=== PATIENT | female | born 1995 | race Caucasian/White ===

== ENCOUNTER 2018-10-31 20:07 | Outpatient (REF) | payer MEDICAID, SELFPAY | END 2018-10-31 20:27 | LOC: NCHCN 20:07 | PROVIDERS: PCP Pediatrics; Visit Provider Physician Assistant Medical | DX: N39.0 Urinary tract infection, site not specified (principal) | CPT/HCPCS: 87077; 87086; 87186 ==

== ENCOUNTER 2019-04-29 19:17 | Outpatient (REF) | payer MEDICAID, SELFPAY ==
[2019-04-29 19:06] LABS: Abs Immature Grans 0.01 k/cumm (0.0-0.09); Absolute Basophil Count 0.02 k/cumm (0.0-0.2); Absolute Eosinophil Count 0.12 k/cumm (0.0-0.7); Absolute Lymphocyte Count 1.46 k/cumm (1.2-3.4); Absolute Monocyte Count 0.41 k/cumm (0.11-0.7); Absolute Neutrophil Count 4.93 k/cumm (1.2-6.7); Basophils % 0.3; Eosinophils % 1.7; HCT 39.5 % (36.0-46.0); HGB 12.8 g/dL (12.0-15.5); Immature Grans % 0.1; Mean Corp. HGB Concentration 32.4 g/dL (32.0-36.0); Mean Corpuscular Hemoglobin 28.6 pg (27.0-33.0); Mean Corpuscular Volume 88.4 fL (80-95); Mean Platelet Volume 11.9 fL (8.0-11.0); Monocytes % 5.9; Platelet Count 213 x1000/uL (130-400); RBC 4.47 m/cumm (4.00-5.20); RBC Distribution Width 14.3 % (11.7-14.6); White Blood Cell Count 6.95 k/cumm (4.4-10.8)
[2019-04-29 19:27] LABS: Iron 55 ug/dL (50-175)
[2019-04-29 19:41] LABS: Ferritin 66 ng/mL (8-388); TSH (W/Ref FT4) 1.71 uIU/mL (0.36-3.74)
== END 2019-04-29 19:37 ==
LOC: NCHCN 19:17
PROVIDERS: PCP Pediatrics; Visit Provider Nurse Practitioner Family
DX: R53.83 Other fatigue (principal)
CPT/HCPCS: 82728; 83540; 84443; 85025

== ENCOUNTER 2020-06-11 13:53 | Outpatient (REF) | payer MEDICAID, SELFPAY ==
[2020-06-11 20:20] LABS: ESR 23 mm/hr (0-20)
[2020-06-19 13:00] LABS: CRP, High Sensitivity 14.6 mg/L (<2.0)
[2020-06-19 13:01] LABS: Rheumatoid Factor <15 IU/mL (<15)
[2020-06-19 13:04] LABS: ANA Interpretation 0.5 U (Negative)
== END 2020-06-11 14:13 ==
LOC: NCHCN 13:53
PROVIDERS: PCP Pediatrics; Visit Provider Nurse Practitioner Family
DX: L40.8 Other psoriasis (principal); M25.59 Pain in other specified joint
CPT/HCPCS: 85652; 86141; 83735; 86038; 86431

== ENCOUNTER 2020-12-23 10:11 | Outpatient (REF) | payer MEDICAID, SELFPAY ==
--- NOTE | 2020-12-23 10:19 | PAPFT_PTH ---
PATIENT: Deisy Duggan LOC: [facility]#:[id number] AGE/SX: 25/F ROOM: RE12/23/[address]: Caroline Garcia : 1995 BED: DIS: 12/23/2020 SPEC #: [id number] RECD: 12/23/20 18:03 STATUS: LUISANA RERolanad #: [id number] JANNET: 12/23/20 10:[address]: Caroline Garcia DEPT: [facility] Cytology RECD BY: Keyla Painter ENTERED: 12/23/20 18:03 SP TYPE: PAPFT OTHR DR: Maddie Olguin MD Tissues: 1 - CX/ENDOCX FOR PAP SMEARS Procedures: PAP THIN PREP/[facility] Screening Comments: [id number]
[2020-12-23 16:06] LABS: Hemoglobin A1C 5.3 % (<5.7)
[2020-12-23 16:29] LABS: ALT 72 U/L (14-59); AST 39 U/L (15-37); Albumin 3.9 g/dL (3.4-5.0); Alkaline Phosphatase 90 U/L (46-116); Anion Gap 10.9 mmol/L (3-11); BUN 13 mg/dL (7-18); Bilirubin, Total 0.6 mg/dL (0.2-1.0); CO2 27.1 mmol/L (21.0-32.0); CREATININE 0.7 mg/dL (0.55-1.02); Calcium 9.5 mg/dL (8.5-10.1); Calculated LDL 72 mg/dL (<100); Chloride 104 mmol/L (98-107); Cholesterol 134 mg/dL (<200); Glucose 101 mg/dL (74-106); HDL Cholesterol 53 mg/dL (40-60); Potassium 4.2 mmol/L (3.5-5.1); Sodium 142 mmol/L (136-145); Total Protein 7.5 g/dL (6.4-8.2); Triglyceride 49 mg/dL (<150)
== END 2020-12-23 10:12 | disposition home or self-care (01) ==
LOC: NCHCN 10:11
PROVIDERS: PCP Pediatrics; Visit Provider Physician Assistant
DX: Z13.29 Encounter for screening for other suspected endocrine disorder (principal); Z83.49 Family history of other endocrine, nutritional and metabolic diseases; Z13.220 Encounter for screening for lipoid disorders; Z13.1 Encounter for screening for diabetes mellitus; Z68.42 Body mass index [BMI] 45.0-49.9, adult; Z12.4 Encounter for screening for malignant neoplasm of cervix; Z01.419 Encounter for gynecological examination (general) (routine) without abnormal findings
CPT/HCPCS: 80053; 80061; 88142; 83036; 84443

== ENCOUNTER 2021-01-18 21:33 | Outpatient (REF) | payer MEDICAID, SELFPAY ==
[2021-01-20 14:25] LABS: COVID-19 RT-PCR UVMMC Result Negative (Negative)
== END 2021-01-18 21:34 | disposition home or self-care (01) ==
LOC: NCHCN 21:33
PROVIDERS: Visit Provider Nurse Practitioner Family
DX: Z20.822 Contact with and (suspected) exposure to COVID-19 (principal); J06.9 Acute upper respiratory infection, unspecified
CPT/HCPCS: U0003

== ENCOUNTER 2023-08-23 20:41 | Outpatient (REF) | payer MEDICAID, SELFPAY ==
[2023-08-23 20:23] LABS: ALT 156 U/L (14-59); AST 89 U/L (15-37); Albumin 3.8 g/dL (3.4-5.0); Alkaline Phosphatase 80 U/L (46-116); Bilirubin, Direct 0.2 mg/dL (0.0-0.2); Bilirubin, Total 0.6 mg/dL (0.2-1.0); Total Protein 7.7 g/dL (6.4-8.2)
[2023-08-23 20:34] LABS: Hemoglobin A1C 5.3 % (<5.7)
[2023-08-24 19:44] LABS: Hepatitis A Antibody IgM Negative (Negative); Hepatitis B Core Antibody Negative (Negative); Hepatitis B surface Ag Negative (Negative); Hepatitis C Ab w Rflx HCV PCR Negative (Negative)
[2023-08-25 12:17] LABS: IgA 277 mg/dL (85-499); Interpretation (See Note); Tissue Transglutaminase IgA <4.0 CU (<20.0)
== END 2023-08-23 20:42 | disposition home or self-care (01) ==
LOC: NCHCN 20:41
PROVIDERS: Visit Provider Nurse Practitioner Family
DX: K76.0 Fatty (change of) liver, not elsewhere classified (principal); K90.49 Malabsorption due to intolerance, not elsewhere classified; Z68.42 Body mass index [BMI] 45.0-49.9, adult
CPT/HCPCS: 80076; 82784; 83516; 86704; 86709; 86803; 87340; 83036

== ENCOUNTER 2024-01-23 17:05 | Outpatient (REF) | payer MEDICAID, SELFPAY ==
--- NOTE | 2024-01-23 15:30 | PAPFT_PTH ---
PATIENT: Deisy Duggan LOC: [facility]#:[id number] AGE/SX: 29/F ROOM: RE01/23/[address]: Jane Whipple : 1995 BED: DIS: 01/23/2024 SPEC #: [id number] RECD: 01/24/24 13:43 STATUS: LUISANA REQ #: [id number] JANNET: 01/23/24 15:[address]: Jocelyn Whipple DEPT: [facility] Cytology RECD BY: Keyla Painter ENTERED: 01/24/24 13:43 SP TYPE: PAPFT OT DR: Unknown,Unknown Tissues: 1 - CX/ENDOCX FOR PAP SMEARS Procedures: PAP THIN PREP/[facility] Screening Comments: [id number]
[2024-01-23 20:00] LABS: ALT 113 U/L (14-59); AST 59 U/L (15-37); Albumin 3.8 g/dL (3.4-5.0); Alkaline Phosphatase 82 U/L (46-116); Anion Gap 10.2 mmol/L (3-11); BUN 15 mg/dL (7-18); Bilirubin, Total 0.5 mg/dL (0.2-1.0); CO2 24.8 mmol/L (21.0-32.0); CREATININE 0.9 mg/dL (0.55-1.02); Calcium 9.3 mg/dL (8.5-10.1); Chloride 106 mmol/L (98-107); Glucose 93 mg/dL (74-106); Potassium 4.1 mmol/L (3.5-5.1); Sodium 141 mmol/L (136-145); Total Protein 7.7 g/dL (6.4-8.2)
== END 2024-01-23 17:06 | disposition home or self-care (01) ==
LOC: NCHCN 17:05
PROVIDERS: Visit Provider Nurse Practitioner Family
DX: K76.0 Fatty (change of) liver, not elsewhere classified (principal); Z12.4 Encounter for screening for malignant neoplasm of cervix
CPT/HCPCS: 80053; 88142

== ENCOUNTER 2025-05-05 17:33 | Outpatient (REF) | payer MEDICAID, SELFPAY ==
[2025-05-05 19:24] LABS: ALT 72 U/L (14-59); AST 38 U/L (15-37); Albumin 4.1 g/dL (3.4-5.0); Alkaline Phosphatase 94 U/L (46-116); Anion Gap 9.9 mmol/L (3-11); BUN 14 mg/dL (7-18); Bilirubin, Direct 0.1 mg/dL (0.0-0.2); Bilirubin, Total 0.5 mg/dL (0.2-1.0); CO2 27.1 mmol/L (21.0-32.0); Calcium 10.9 mg/dL (8.5-10.1); Chloride 104 mmol/L (98-107); Estimated GFR 88.75 (mL/min/1.73m2); Glucose 113 mg/dL (74-106); Potassium 4.3 mmol/L (3.5-5.1); Sodium 141 mmol/L (136-145); Total Protein 8.3 g/dL (6.4-8.2)
== END 2025-05-05 17:34 | disposition home or self-care (01) ==
LOC: NCHCN 17:33
PROVIDERS: Visit Provider Nurse Practitioner Family
DX: K76.0 Fatty (change of) liver, not elsewhere classified (principal); Z68.42 Body mass index [BMI] 45.0-49.9, adult
CPT/HCPCS: 80048; 80076